=== PATIENT | female | born 1940 | race Caucasian/White ===

== ENCOUNTER → 2016-07-07 | Outpatient (CLI) | payer MEDICARE ==
[~2016-07-07] MED LIST: ARMOUR THYROID30 M1 PO; ARMOUR THYROID30 MG PO; ARMOUR THYROID60 M1 PO; ASA CHILDREN'S81 MG PO; ASCORBIC ACID500 MG PO; ASPIRIN EC81 MG PO; BETAPACE DPS80 MG PO; CO Q-10200 MG PO; CO Q-10300 MG PO; COENZYME Q-10200 MG PO; COUMADIN5 MG PO; COZAAR DPS50 MG PO; CRESTOR10 MG PO; CRESTOR5 MG PO; CULTURELLE1 CAP PO; DALIRESP500 MCG PO; DELTASONE DPS10 MG PO; DELTASONE DPS20 MG PO; DULCOLAX5 MG PO; DULERA 200 MCG/13 GM IH; DUONEB DPS3 ML IH; ECOTRIN81 MG PO; FISH OIL300 MG PO; LEVAQUIN DPS500 MG PO; MAALOX DPS30 ML PO; METOPROLOL TART25 MG PO; MILK OF MAGNESI10 ML PO; MYCOSTATIN PWD15 GM TP; NILSTAT SUSP DPS5 ML PO; OMEGA-3 DPS1000 MG PO; PLAVIX75 MG PO; PRADAXA150 MG PO; PRILOSEC DPS20 MG PO; PROBIOTIC1 EAC1 PO; PROTONIX40 MG PO; PROVENTIL HFA6.7 GM IH; PROVENTIL2.5 MG/3 M IH; REQUIP DPS2 MG PO; SENOKOT S1 TAB PO; SPIRIVA18 MCG IH; SURFAK240 MG PO; SYMBICORT160 MCG/6 IH; THEO-24200 MG PO; TUDORZA IH; TUMS DPS500 MG PO; TYLENOL DPS325 MG PO; TYLENOL325 MG PO; ULTRAM50 MG PO; VIBRAMYCIN-DPS100 M2 PO; VITAMIN D35000 UNI1 PO; VITAMIN D35000 UNIT PO; VITAMIN D5000 UNIT PO; ZEBETA5 M1 PO; ZESTRIL DPS5 MG PO
== END | disposition home or self-care (01) ==
LOC: PTH.S 11:15
DX: R41.0 Disorientation, unspecified (principal); R06.02 Shortness of breath

== ENCOUNTER → 2016-08-24 | Outpatient (CLI) | payer MEDICARE | END | disposition home or self-care (01) | LOC: RAD.S 08-11 13:00 | DX: Z12.31 Encounter for screening mammogram for malignant neoplasm of breast (principal) ==

== ENCOUNTER → 2016-09-04 | Outpatient (CLI) | payer MEDICARE | END | disposition home or self-care (01) | LOC: PTH.S 09-03 09:00 | DX: J18.9 Pneumonia, unspecified organism (principal) ==

== ENCOUNTER → 2016-11-05 | Outpatient (CLI) | payer MEDICARE | END | disposition home or self-care (01) | LOC: RAD.S 10:46 | DX: R06.00 Dyspnea, unspecified (principal); R05 Cough; J90 Pleural effusion, not elsewhere classified ==